=== PATIENT | male | born 1970 | race Asian ===

== ENCOUNTER 2024-03-04 11:21 | Emergency (ER) | payer OTHER, SELFPAY ==
[2024-03-04 11:24] VITALS: BP 129/80
[2024-03-04 11:38] LABS: Urine Albumin Negative (Neg - Trace); Urine Bilirubin Negative (Negative); Urine Character Clear (Clear); Urine Color Yellow; Urine Glucose 3+ (Negative); Urine Ketone Negative (Negative); Urine Leukocyte Negative (Negative); Urine Nitrite Negative (Negative); Urine Occult Blood Negative (Negative); Urine Urobilinogen Negative (Neg - 1+)
[2024-03-04 12:04] VITALS: BMI 26.0
[2024-03-04 12:05] LABS: % Basophils 0.6 % (0-2); % Eosinophils 2.6 % (0-6); % Immature Granulocytes 0.3 % (0-0.5); % Lymphocytes 30.6 % (20.5-51.1); % Monocytes 9.3 % (1.7-9.3); % Neutrophils 56.6 % (42.2-75.2); Absolute Eosinophils 0.2 10^3/uL (0-0.7); Absolute Lymphocytes 2.2 10^3/uL (1.2-3.4); Absolute Monocytes 0.7 10^3/uL (0.1-0.6); Absolute Neutrophils 4.1 10^3/uL (1.4-6.5); Hematocrit 39.6 % (39.0-52.0); Hemoglobin 12.9 g/dL (13.0-18.0); Mean Corp Hgb Conc. 32.6 g/dL (33.0-37.0); Mean Corpuscular Volume 76.6 fL (80.0-94.0); Mean Platelet Volume 9.4 fL (7.4-10.4); Nucleated Red Blood Cells % 0 % (-); Platelet Count 290 10^3/uL (130-400); Red Blood Cell Count 5.17 10^6/uL (4.70-6.10); Red Cell Dist. Width 15.2 % (11.5-14.5); White Blood Cell Count 7.2 10^3/uL (4.8-10.8)
[2024-03-04 12:18] LABS: ALT (SGPT) 27 U/L (0-50); AST (SGOT) 24 U/L (17-59); Albumin 4.4 g/dl (3.5-5.0); Alkaline Phosphatase 43 U/L (38-126); Blood Urea Nitrogen 9 mg/dl (9-20); Calcium 9.5 mg/dl (8.4-10.2); Carbon Dioxide 25 mmol/L (22-30); Chloride 104 mmol/L (98-107); Estimated Creatinine Clearance > 125 ml/min; Glucose 182 mg/dl (70-99); Lipase 221 U/L (23-300); Potassium 4.3 mmol/L (3.5-5.1); Sodium 140 mmol/L (135-145); Total Bilirubin 0.4 mg/dl (0.2-1.3); eGFR > 60.00
--- NOTE | 2024-03-04 13:41 | ED.GENMED ---
History of Present Illness
<Ceci Diaz PA-C - Last Filed: 03/06/24 19:03>
General
Chief Complaint: Abdominal Pain
Source: patient
Exam Limitations: none
Time Seen by Provider: 03/04/24 11:50
Nursing documentation reviewed up to this point in time: agreed with
History of Present Illness
History of Present Illness:
pt is a 53 y/o M with h/o NIDDM
here with R sided abd pain since last night
he hd the pain before bed and then was able to sleep but woke up with pain again
it is a little bit in his R back
no fever/chills/vomiting
had mimld nausea
before the pain started he had diarrhea 2-3 times but that cleraed up
he has known kidney cyst R kidney but it is just being monitored
was concerned about him having IV contrast
Past History
<Ceci Diaz PA-C - Last Filed: 03/06/24 19:03>
Past History
ED Past Medical History: HTN, Hypercholesterolemia and NIDDM
ED Past Surgical History: None
Social History
Tobacco: Non-smoker
Alcohol: None
Drug: None
Personal:
Living: with family
Employment: Employed
Family History
Family History: Other (No irritable bowel or colon cancer)
Review of Systems
<Ceci Diaz PA-C - Last Filed: 03/06/24 19:03>
Review of Systems
Allergies reviewed?: Yes
All Other Systems: Not applicable
Phy Exam
<Ceci Diaz PA-C - Last Filed: 03/06/24 19:03>
Physical Exam
Physical Exam:
GENERAL: Alert , in no apparent distress
EYE: pupils equal and reactive
NECK: Supple
ENT: o/p clr, mmm.
CARDIAC: Regular rate and rhythm .
LUNGS: Clear breath sounds bilaterally, no acute respiratory distress, no wheezes/rales/rhonchi
ABDOMEN: Soft, mild RUQ tenderness; no rendon's sign, no r/g, no cvat, normal bowel sounds
NEUROLOGICAL: Alert and oriented, no focal neuro deficits
SKIN: Warm and dry, skin intact.
MUSCULOSKELETAL: No edema, well perfused. neg luciano's sign
PSYCH: Normal and appropriate interaction.
Course
<Ceci Diaz PA-C - Last Filed: 03/06/24 19:03>
Orders/Labs/Results
Orders:
Orders
03/04/24 11:30
Urinalysis Reflex To Culture Urgent
Date Specimen was Collected: 03/04/24
Time Specimen was Collected: 11:23
03/04/24 11:57
Complete Blood Count/With Diff Urgent
Comprehensive Metabolic Panel Urgent
Lipase Urgent
03/04/24 12:44
US Abdomen Complete/Upper Urgent
Comment:
Reason For Exam: RUQ PAIN
03/04/24 14:46
Bedside Glucose- Treatment ONCE
03/04/24 15:13
CT Abd/Pel (IV only)-DH only Urgent
Comment:
Reason For Exam: R sided abd pain, diarrhea
03/04/24 15:15
Ketorolac [Toradol] 15 mg IV NOW STA
Abnormal Lab Results
03/04/24 03/04/24
11:30 11:57
Hgb 12.9 L g/dL
(13.0-18.0)
MCV 76.6 L fL
(80.0-94.0)
MCH 25.0 L pg
(27.0-31.0)
MCHC 32.6 L g/dL
(33.0-37.0)
RDW 15.2 H %
(11.5-14.5)
Absolute Monos (auto) 0.7 H 10^3/uL
(0.1-0.6)
Glucose 182 H mg/dl
(70-99)
Urine Glucose 3+ A
(Negative)
03/04/24 11:57
03/04/24 11:57
Vital Signs
Initial and Last Documented VS:
Initial Vital Signs
Temp Pulse Resp BP Pulse Ox
98.3 F 81 20 129/80 99
03/04/24 11:24 03/04/24 11:24 03/04/24 11:24 03/04/24 11:24 03/04/24 11:24
Last Documented Vital Signs
Temp Pulse Resp BP Pulse Ox
98.2 F 74 18 119/74 98
03/04/24 15:08 03/04/24 15:08 03/04/24 15:08 03/04/24 15:08 03/04/24 15:08
<Mark Calloway PA-C - Last Filed: 03/04/24 18:43>
Orders/Labs/Results
Orders:
Orders
03/04/24 11:30
Urinalysis Reflex To Culture Urgent
Date Specimen was Collected: 03/04/24
Time Specimen was Collected: 11:23
03/04/24 11:57
Complete Blood Count/With Diff Urgent
Comprehensive Metabolic Panel Urgent
Lipase Urgent
03/04/24 12:44
US Abdomen Complete/Upper Urgent
Comment:
Reason For Exam: RUQ PAIN
03/04/24 14:46
Bedside Glucose- Treatment ONCE
03/04/24 15:13
CT Abd/Pel (IV only)-DH only Urgent
Comment:
Reason For Exam: R sided abd pain, diarrhea
03/04/24 15:15
Ketorolac [Toradol] 15 mg IV NOW STA
Abnormal Lab Results
03/04/24 03/04/24
11:30 11:57
Hgb 12.9 L g/dL
(13.0-18.0)
MCV 76.6 L fL
(80.0-94.0)
MCH 25.0 L pg
(27.0-31.0)
MCHC 32.6 L g/dL
(33.0-37.0)
RDW 15.2 H %
(11.5-14.5)
Absolute Monos (auto) 0.7 H 10^3/uL
(0.1-0.6)
Glucose 182 H mg/dl
(70-99)
Urine Glucose 3+ A
(Negative)
03/04/24 11:57
03/04/24 11:57
Vital Signs
Initial and Last Documented VS:
Initial Vital Signs
Temp Pulse Resp BP Pulse Ox
98.3 F 81 20 129/80 99
03/04/24 11:24 03/04/24 11:24 03/04/24 11:24 03/04/24 11:24 03/04/24 11:24
Last Documented Vital Signs
Temp Pulse Resp BP Pulse Ox
98.2 F 74 18 119/74 98
03/04/24 15:08 03/04/24 15:08 03/04/24 15:08 03/04/24 15:08 03/04/24 15:08
<Ceci Diaz PA-C - Last Filed: 03/06/24 19:03>
MDM/Problems Addressed
Differential Diagnosis Includes:
cholelithiasis, ,cholecysitis, colitis, kidney stone
MDM/Problems Addressed:
53 y/o M with h/o hld, NIDDM
here with R side abd pain
diarrhea first x 3 and then pain started
it is owrse with changing position
no sob, minimal cough, no fever, occ nausea, no diarrhea
pt has not tried anything for pain
is here with son and is on phone who speak better telugu
pt does have RUQ tendenres but also right flank tendernses
ding appendectomy int he past
i thought that ct would be more helpeful than US but his was insistent on trying US first to avoid radiation
US shows renal cysts, but no other findings
no hydro
urine 3+ glucose but no ketones
will order CT
toradol for pain
sesem to be positional
no CP, SOB
doubt that pt has PE, no RF;
signed out at 1600.
<Mark Calloway PA-C - Last Filed: 03/04/24 18:43>
*Critical Care Note
Total Time (30-74mins, 75-104mins- exclusive of procedures): Not Applicable
<Mark Calloway PA-C - Last Filed: 03/04/24 18:43>
Update Note
Update Note:
6:42 PM: Received care of patient upon signout pending CT scan of abdomen. CT was reviewed and shows no obvious acute finding. There is diverticulosis without evidence of diverticulitis. Appendix is surgically absent. No pericolonic stranding
noted. Question possible viral illness. Workup here essentially unremarkable. Discussed with patient and son in the room. Stable for discharge
ED Attending Note
<Ceci Diaz PA-C - Last Filed: 03/06/24 19:03>
-
Portions of this chart may have been created with voice recognition software.� Occasional wrong word or��sound alike� substitutions may have occurred due to the inherent limitations of voice recognition software.
Discharge Plan
Departure
Patient Disposition: Home (Routine Discharge)
Date of Disposition: 03/04/24
Time of Disposition: 18:42
Patient with high blood pressure during this ER visit?: No
Discharge Problem:
Abdominal pain
Instructions: Abdominal Pain
Prescriptions:
No Action
lovastatin 40 MG tablet
40 mg PO DAILY
aspirin 81 MG tablet,delayed release (DR/EC)
81 mg PO DAILY
metformin 1,000 MG tablet
1,000 mg PO BID
sitagliptin phosphate [Januvia] 100 MG tablet
100 mg PO DAILY
levofloxacin 750 mg tablet
750 mg PO DAILY Qty: 5 0RF
Referrals:
Tripp Villa CRNP [Family Provider] -
Activity Restrictions/Additional Instructions:
Drink plenty of fluids. Use Tylenol or ibuprofen for pain peer return if worse otherwise follow-up with your family doctor
Interventions
Interventions:
*Risk Screen - Suicide Last Done: 03/04/24 15:08
*General Assessment Last Done: 03/04/24 11:24
*Neglect/Abuse Screening Last Done: 03/04/24 15:08
ED- Fall Risk Assessment Last Done: 03/04/24 18:49
*ED COVID-19 Vaccine History Last Done: 03/04/24 18:49
*Nursing Disposition Last Done: 03/04/24 18:49
BT-Qucixh-Ocfptbnnzx Assessment Last Done: 03/04/24 12:04
Discharge Date and Time
Discharge Date/Time: 03/04/24 18:49
Print Language: UKRAINIAN
[2024-03-04 14:52] LABS: Glucose - Point of Care 77 mg/dl (70-99)
[2024-03-04 15:08] VITALS: BP 119/74
[2024-03-04] MEDS: TORADOL 15 MG IV (15:18)
== END 2024-03-04 18:49 | disposition home or self-care (01) ==
LOC: EMR 11:21
PROVIDERS: Physician Assistant; EMERGENCY PHYSICIAN Emergency Medicine; FAMILY PHYSICIAN Nurse Practitioner
DX: R10.9 Unspecified abdominal pain (principal); E11.9 Type 2 diabetes mellitus without complications
CPT/HCPCS: 99285; 96374; 74177; 76700; 80053; 81003; 82962; 83690; 85025; Q9967